=== PATIENT | female | born 1995 | race Caucasian/White ===

== ENCOUNTER 2020-09-20 08:39 | Emergency (ER) | payer OTHER ==
[2020-09-20 08:54] VITALS: BP 125/61
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
== END 2020-09-20 10:11 | disposition home or self-care (01) ==
LOC: ED 08:39
DX: S90.32XA Contusion of left foot, initial encounter (principal); V49.9XXA Car occupant (driver) (passenger) injured in unspecified traffic accident, initial encounter; Y92.410 Unspecified street and highway as the place of occurrence of the external cause; R20.0 Anesthesia of skin
CPT/HCPCS: 99281; 99282

== ENCOUNTER 2020-11-26 07:44 | Emergency (ER) | payer OTHER ==
[2020-11-26 07:52] VITALS: BP 120/41
[2020-11-26 08:12] LABS: RAPID STREP SCREEN Negative (Negative)
[2020-11-26 08:13] LABS: INFECTIOUS MONONUCLEOSIS NEGATIVE (Negative)
[2020-11-26] MEDS ORDERED: GI COCKTAIL 120 ML BOTTLE PO STA (08:15)
--- NOTE | 2020-11-26 08:19 | ED Physician Documentation ---
PD HPI HEENT - Stated complaint Stated Complaint: SWOLLEN TONSILS - Chief complaint Chief Complaint: Heent - History obtained from History obtained from: Patient - Additional information Additional information: Patient comes emergency department chief complaint of bilateral tonsillar pain and a sense of swelling that started a couple of days ago, worsening. She states she has a longstanding history of intermittent tonsillar discomfort and a sense of swelling. She states that she has a history of getting rhinorrhea when the weather turns rainy, but otherwise has no known allergies. The patient denies any known history of GERD, and no GERD symptoms.She does not recall getting anything stuck in her throat recently. Patient denies fever or chills. No rhinorrhea currently. She states she has has a little mucus in her throat when she wakes up in the morning and has to cough this out but otherwise, she has not had a "cough". No sick contacts. No other complaints at this time. Patient is vaccinated against Covid. Review of Systems Ten Systems: 10 systems reviewed and negative Constitutional: reports: Reviewed and negative Eyes: reports: Reviewed and negative Ears: reports: Reviewed and negative Nose: reports: Reviewed and negative Throat: reports: Sore throat Cardiac: reports: Reviewed and negative Respiratory: reports: Reviewed and negative GI: reports: Reviewed and negative : reports: Reviewed and negative Skin: reports: Reviewed and negative Musculoskeletal: reports: Reviewed and negative Neurologic: reports: Reviewed and negative Psychiatric: reports: Reviewed and negative Endocrine: reports: Reviewed and negative Immunocompromised: reports: Reviewed and negative PD PAST MEDICAL HISTORY - Past Medical History Past Medical History: Yes Cardiovascular: None Respiratory: None Neuro: Headaches Endocrine/Autoimmune: None GI: None 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 HEENT: None Psych: Depression, Anxiety Musculoskeletal: None Derm: None - Past Surgical History Past Surgical History: No - Present Medications Home Medications: Ambulatory Orders Medication Instructions Recorded Confirmed No Known Home Medications 11/26/20 11/26/20 - Allergies Allergies/Adverse Reactions: Allergies Allergy/AdvReac Type Severity Reaction Status Date / Time No Known Drug Allergies Allergy Verified 11/26/20 07:48 - Social History Does the pt smoke?: No Smoking Status: Former smoker Does the pt drink ETOH?: No Does the pt have substance abuse?: No - Immunizations Immunizations are current?: Yes PD ED PE NORMAL - Vitals Vital signs reviewed: Yes - General General: Alert and oriented X 3, No acute distress, Well developed/nourished - HEENT HEENT: Atraumatic, PERRL, EOMI, Moist mucous membranes, Pharynx benign (2+ tonsils without erythema or exudates. No asymmetry or enlargement. 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 I discussed with the patient that her symptoms, particularly being of a recurrent nature, may be the result of some underlying GERD, especially at night, or postnasal drip from allergies. She may also be trapping a small amount of food in the crypts of her tonsils because they are so prominent. I have advised her to follow-up with the ENT for further evaluation of this ongoing issue. The patient does not display any evidence of acute infection at this time, given her negative test. She has been given a GI cocktail here in the emergency department for symptomatic relief. We have discussed the usual indications for return. Departure - Departure Disposition: 01 Home, Self Care Clinical Impression: Pharyngitis Qualifiers: Pharyngitis/tonsillitis etiology: unspecified etiology Qualified Code(s): J02.9 - Acute pharyngitis, unspecified Condition: Stable Instructions: Sore Throats Self Care Follow-Up: Kel South MD [Physician No Access] - Comments: Both your mono and strep tests are negative. As we discussed, they are also noninfectious causes of sore throats, such as acid reflux or allergies. You may also be trapping a small amount of food in the crypts of your tonsils. It is also possible that you have a mild infection with one of the many upper respiratory viruses that are going around right now. We cannot test for all of these viruses, but if this is the case, the symptoms should go away on their own. Given the ongoing and recurrent nature of your throat symptoms, it would probably be good for you to follow-up with the ENT specialists. Please call today to make an appointment. Forms: Activity restrictions
[2020-11-26] MEDS ORDERED: LIDOCAINE VISCOUS 2% 15 ML UDC MM STA (08:20)
[2020-11-26] MEDS ORDERED: MAG HYDROX/AL HYDROX/SIMETH 30 ML UDC PO STA (08:20)
== END 2020-11-26 08:37 | disposition home or self-care (01) ==
LOC: ED 07:44
DX: J02.9 Acute pharyngitis, unspecified (principal); J35.1 Hypertrophy of tonsils; Z87.891 Personal history of nicotine dependence
CPT/HCPCS: 86308; 87070; 87077; 87430; 99283; 99284; A9270

== ENCOUNTER 2020-12-05 07:26 | Emergency (ER) | payer OTHER ==
[2020-12-05 07:37] VITALS: BP 109/50
--- NOTE | 2020-12-05 08:27 | ED Physician Documentation ---
PD HPI URI - Stated complaint Stated Complaint: SORE THROAT - Chief complaint Chief Complaint: Heent - History obtained from History obtained from: Patient - History of Present Illness Timing - onset: How many weeks ago (1) Timing duration: Weeks (1) Timing details: Abrupt onset, Still present Associated symptoms: Chills, Sore throat, Swollen nodes, NVD (nausea without vomiting; has had diarrhea for few days.). No: Fever, Nasal congestion, Dry cough Contributing factors: No: Sick contact, Travel, Unimmunized Improves by: No: Medication (seen recently with neg rapid strep but positive culture for group C strep; Rx with Amox the past 5 days without any improvement in symptoms. Her son is also now having sore throat too.) Similar symptoms before: Diagnosis (strep pharyngitis) Recently seen: Emergency Dept Review of Systems Constitutional: reports: Chills. denies: Fever Nose: denies: Rhinorrhea / runny nose, Congestion Throat: reports: Sore throat Respiratory: denies: Cough GI: reports: Nausea, Diarrhea. 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 HEENT: None Psych: Depression, Anxiety Musculoskeletal: None Derm: None - Past Surgical History Past Surgical History: No - Present Medications Home Medications: Ambulatory Orders Medication Instructions Recorded Confirmed Lactobacillus Combination No.4 1 each PO TID 7 Days #20 cap 12/05/20 [Probiotic] Ondansetron Odt [Zofran] 4 mg TL Q6H PRN #15 tablet 12/05/20 Penicillin Vk 500 mg PO DAILY 12/05/20 12/05/20 Venlafaxine HCl [Effexor Xr] 75 mg PO DAILY 12/05/20 12/05/20 cephALEXin [Keflex] 500 mg PO TID #20 cap 12/05/20 dexAMETHasone [Decadron] 4 mg PO DAILY #5 tablet 12/05/20 traZODone [Desyrel] 50 mg PO HS 12/05/20 12/05/20 - Allergies Allergies/Adverse Reactions: Allergies Allergy/AdvReac Type Severity Reaction Status Date / Time No Known Drug Allergies Allergy Verified 12/05/20 07:32 - Social History Does the pt smoke?: No Smoking Status: Never smoker Does the pt drink ETOH?: No Does the pt have substance abuse?: No - Immunizations Immunizations are current?: Yes PD ED PE NORMAL - Vitals Vital signs reviewed: Yes - General General: Alert and oriented X 3, No acute distress, Well developed/nourished - HEENT HEENT: Ears normal. No: Pharynx benign (redness with swelling of tonsils, left more than right. No peritonsillar edema. ) - Neck Neck: Supple, no meningeal sign, Other (left anterior adenopathy.) - Cardiac Cardiac: RRR, No murmur - Respiratory Respiratory: Clear bilaterally - Abdomen Abdomen: Soft, Non tender - Derm Derm: Normal color, Warm and dry, No rash - Neuro Neuro: Alert and oriented X 3, No motor deficit, Normal speech Results - Vitals Vitals: Vital Signs - 24 hr 12/05/20 07:34 Temperature 36.4 C L Heart Rate 76 Respiratory 18 Rate Blood Pressure 109/50 L O2 Saturation 97 Oxygen O2 Source Room air PD MEDICAL DECISION MAKING - ED course Complexity details: reviewed old records, considered differential (recent Dx group C strep without any improvement on Amox. Will change to Keflex, add steroids. GI symptoms likely side effect of abx; can add antiemetic and probiotics. ), d/w patient Departure - Departure Disposition: 01 Home, Self Care Clinical Impression: Strep pharyngitis Condition: Stable Record reviewed to determine appropriate education?: Yes Instructions: ED Strep Pharyngitis Conf Prescriptions: dexAMETHasone [Decadron] 4 mg PO DAILY #5 tablet cephALEXin [Keflex] 500 mg PO TID #20 cap Lactobacillus Combination No.4 [Probiotic] 1 each PO TID 7 Days #20 cap Ondansetron Odt [Zofran] 4 mg TL Q6H PRN #15 tablet PRN Reason: Nausea / Vomiting Comments: You have not had any improvement in your symptoms with the penicillin, I would suggest stopping the penicillin and switching to cephalexin. This should be active on the group C strep as well. Treatment failures with penicillin are about 5% so not too unusual. Stay well-hydrated. Ondansetron if needed for nausea. Add Decadron steroid for inflammation of the tonsils as directed. This should help with the discomfort as a fair amount. Continue Tylenol if needed for pains. The diarrhea and upset stomach likely are from side effect of the antibiotics. Add in some probiotic a few times daily to help with that and mitigate the side effects of the antibiotics. Some diarrhea could happen with the new antibiotic as well. Recheck if not improved over the next several days. You should be okay to return to work tomorrow if feeling improved. I transmitted your prescriptions to [facility] pharmacy. Discharge Date/Time: 12/05/20 09:21
[2020-12-05] MEDS ORDERED: ONDANSETRON ODT 4 MG TABLET TL STA (08:41)
[2020-12-05] MEDS ORDERED: DEXAMETHASONE 10 MG/ML VIAL PO STA (08:41)
[2020-12-05] MEDS ORDERED: diphenhydrAMINE ELIXIR 25 MG/10 ML UDC PO STA (08:41)
[2020-12-05] MEDS ORDERED: cephALEXin 250 MG CAPSULE PO STA (08:41)
[2020-12-05] MEDS ORDERED: CHERRY SYRUP 10 ML UDC PO ONE (08:41)
== END 2020-12-05 09:21 | disposition home or self-care (01) ==
LOC: ED 07:26
DX: J02.0 Streptococcal pharyngitis (principal); R59.0 Localized enlarged lymph nodes; R11.0 Nausea; R19.7 Diarrhea, unspecified
CPT/HCPCS: 99283; A9270; Q0162

== ENCOUNTER 2021-01-08 07:52 | Emergency (ER) | payer OTHER ==
--- NOTE | 2021-01-08 08:08 | ED Physician Documentation ---
PD HPI HEENT - Stated complaint Stated Complaint: JAW PX - Chief complaint Chief Complaint: Heent - History obtained from History obtained from: Patient - History of Present Illness Timing - onset: How many weeks ago (2) Timing - duration: Weeks (2) Timing - details: Abrupt onset, Still present Location: Tooth (right lower) Worsens: Swalllowing Associated symptoms: Swollen nodes (mild adenopathy anterior neck). No: Fever Similar symptoms before: Has not had sx before Recently seen: Clinic (Hd right lower 3rd molar extraction by oral surgeon 2 weeks ago with continued pain in area. Had re-procedure to "scrape the bone" per patient, twice, and placed on Amox and NSAIDs. Patient states still having swelling, pain and some drainage (bad tasting) from area. Pain worse since yesterday.) Review of Systems Constitutional: denies: Fever, Chills Nose: denies: Rhinorrhea / runny nose, Congestion Throat: reports: Dental pain / toothache. 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 HEENT: None Psych: Depression, Anxiety Musculoskeletal: None Derm: None - Past Surgical History Past Surgical History: No - Present Medications Home Medications: Ambulatory Orders Medication Instructions Recorded Confirmed Lactobacillus Combination No.4 1 each PO TID 7 Days #20 cap 12/05/20 [Probiotic] Ondansetron Odt [Zofran] 4 mg TL Q6H PRN #15 tablet 12/05/20 Penicillin Vk 500 mg PO DAILY 12/05/20 12/05/20 Venlafaxine HCl [Effexor Xr] 75 mg PO DAILY 12/05/20 12/05/20 cephALEXin [Keflex] 500 mg PO TID #20 cap 12/05/20 dexAMETHasone [Decadron] 4 mg PO DAILY #5 tablet 12/05/20 traZODone [Desyrel] 50 mg PO HS 12/05/20 12/05/20 Clindamycin [Cleocin] 300 mg PO TID 5 Days #15 cap 01/08/21 HYDROcod/ACETAM 5/325 [[place] 5/325] 1 ea PO Q6H PRN #18 tablet 01/08/21 dexAMETHasone [Decadron] 4 mg PO DAILY #5 tablet 01/08/21 - Allergies Allergies/Adverse Reactions: Allergies Allergy/AdvReac Type Severity Reaction Status Date / Time No Known Drug Allergies Allergy Verified 01/08/21 08:05 - Social History Does the pt smoke?: No Smoking Status: Never smoker Does the pt drink ETOH?: No Does the pt have substance abuse?: No - Immunizations Immunizations are current?: Yes PD ED PE NORMAL - Vitals Vital signs reviewed: Yes - General General: Alert and oriented X 3, No acute distress, Well developed/nourished - HEENT HEENT: Moist mucous membranes, Pharynx benign, Other (right lower 3rd molar area with tooth extracted and gum appearing mostly closed and pink at the area. Mild gum swelling without fluctuance on buccal side. Normal on lingual. TMJ area not tender per se. ) - Neck Neck: Supple, no meningeal sign, Other (mild right anterior adenopathy.) - Cardiac Cardiac: RRR, No murmur - Respiratory Respiratory: Clear bilaterally - Derm Derm: Normal color, Warm and dry - Neuro Neuro: Alert and oriented X 3, No motor deficit, Normal speech Results - Vitals Vitals: Vital Signs - 24 hr 01/08/21 01/08/21 08:01 08:56 Temperature 36.5 C 37.3 C Heart Rate 80 58 L Respiratory 15 16 Rate Blood Pressure 136/74 H 105/47 L O2 Saturation 99 96 Oxygen O2 Source Room air PD MEDICAL DECISION MAKING - ED course Complexity details: considered differential (has persistent swelling and drainage from extraction site. On AMox for a week. Can change abx and add short term pain meds. ), d/w patient ED course: I am prescribing a short course of short acting opioid pain medicine for this patient. I reviewed the patient's MANUFACTURER'S REPRESENTATIVE and no concerning findings were noted. I have discussed that the opioids are for short-term therapy only, and will not be refilled from the ED. Departure - Departure Disposition: 01 Home, Self Care Clinical Impression: Mandible pain, Other dental procedure status Condition: Stable Record reviewed to determine appropriate education?: Yes Follow-Up: ALEXANDRA HOLLINGSWORTH MD [Primary Care Provider] - Prescriptions: Clindamycin [Cleocin] 300 mg PO TID 5 Days #15 cap dexAMETHasone [Decadron] 4 mg PO DAILY #5 tablet HYDROcod/ACETAM 5/325 [[place] 5/325] 1 ea PO Q6H PRN #18 tablet PRN Reason: Pain Comments: Stop the amoxicillin and changed to clindamycin for concern of persistent infection. Continue Tylenol and ibuprofen for pains. Add Decadron steroid anti-inflammatory daily for a few days to see if that helps with any nerve inflammation. Add hydrocodone every 4-6 hours if needed for worse pain. Follow-up with oral surgeon over the next few days. I transmitted your prescription to [facility] pharmacy in [place]. I am prescribing a short course of narcotic pain medication for you. These are potentially dangerous and addictive medications that should be used carefully. These medications may constipate you. Take an [id number] stool softener such as docusate twice daily with plenty of water while taking these medications. If you go 24 hours without a bowel movement, take [id number] MiraLAX, per package instructions. Do not drink or drive while taking these medications. If you received narcotic or sedating medications while in the emergency depa rtment do not drive for 24 hours. Store this medication in a safe, secure place and out of reach of children. It is a violation of federal law to give or sell this medication to another person or to use in a manner other than prescribed. The ED will not refill narcotic prescriptions, including prescriptions lost or stolen. You can dispose of unwanted medications at the [facility]'s office or at several pharmacies such as [facility]. Forms: Activity restrictions Discharge Date/Time: 01/08/21 09:02
[2021-01-08] MEDS ORDERED: DEXAMETHASONE 10 MG/ML VIAL PO STA (08:23)
[2021-01-08] MEDS ORDERED: ACETAMINOPHEN 325 MG TABLET PO STA (08:23)
[2021-01-08] MEDS ORDERED: CHERRY SYRUP 10 ML UDC PO ONE (08:23)
[2021-01-08] MEDS ORDERED: CLINDAMYCIN 150 MG CAPSULE PO STA (08:23)
[2021-01-08 08:57] VITALS: BP 105/47
== END 2021-01-08 09:02 | disposition home or self-care (01) ==
LOC: ED 07:52
DX: R68.84 Jaw pain (principal); Z98.818 Other dental procedure status
CPT/HCPCS: 99283; A9270

== ENCOUNTER 2021-03-12 13:29 | Emergency (ER) | payer OTHER ==
[2021-03-12] MEDS ORDERED: SODIUM CHLORIDE 0.9% 1,000 ML IV STA (13:54)
[2021-03-12] MEDS ORDERED: ONDANSETRON 4 MG/2 ML VIAL IVP STA (13:54)
--- NOTE | 2021-03-12 13:56 | ED Physician Documentation ---
PD HPI ABD PAIN - Stated complaint Stated Complaint: STOMACH PX/VOMITTING/BACK PX/HEADACHE - Chief complaint Chief Complaint: Abd Pain - History obtained from History obtained from: Patient - Additional information Additional information: 25-year-old woman who is about 2 weeks after her last menses presents with 4 days of lower abdominal pain, nausea, vomiting, and headache. She was checked for COVID and it was negative. She has had chills and myalgias. No history of abdominal surgeries. She does have some right low back pain with this as well. Review of Systems Constitutional: reports: Chills, Myalgias. 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 PHARMACEUTICAL: Miscarriage(s) : None HEENT: None Psych: Depression, Anxiety Musculoskeletal: None Derm: None - Past Surgical History Past Surgical History: No - Present Medications Home Medications: Ambulatory Orders Medication Instructions Recorded Confirmed Lactobacillus Combination No.4 1 each PO TID 7 Days #20 cap 12/05/20 [Probiotic] Ondansetron Odt [Zofran] 4 mg TL Q6H PRN #15 tablet 12/05/20 Penicillin Vk 500 mg PO DAILY 12/05/20 12/05/20 Venlafaxine HCl [Effexor Xr] 75 mg PO DAILY 12/05/20 12/05/20 cephALEXin [Keflex] 500 mg PO TID #20 cap 12/05/20 dexAMETHasone [Decadron] 4 mg PO DAILY #5 tablet 12/05/20 traZODone [Desyrel] 50 mg PO HS 12/05/20 12/05/20 Clindamycin [Cleocin] 300 mg PO TID 5 Days #15 cap 01/08/21 HYDROcod/ACETAM 5/325 [Ventura 5/325] 1 ea PO Q6H PRN #18 tablet 01/08/21 dexAMETHasone [Decadron] 4 mg PO DAILY #5 tablet 01/08/21 HYDROcod/ACETAM 5/325 [Ventura 5/325] 1 - 2 tab PO Q6H PRN #10 tablet 03/12/21 Meloxicam [Mobic] 7.5 mg PO BID PRN #10 tablet 03/12/21 Ondansetron Odt [Zofran] 4 mg TL Q6H PRN #10 tablet 03/12/21 - Allergies Allergies/Adverse Reactions: Allergies Allergy/AdvReac Type Severity Reaction Status Date / Time No Known Drug Allergies Allergy Verified 03/12/21 13:42 - Social History Does the pt smoke?: No Smoking Status: Never smoker Does the pt drink ETOH?: No Does the pt have substance abuse?: No - Immunizations Immunizations are current?: Yes PD ED PE NORMAL - Vitals Vital signs reviewed: Yes - General General: Alert and oriented X 3, No acute distress - HEENT HEENT: PERRL, EOMI - Neck Neck: Supple, no meningeal sign, No bony TTP - Abdomen Abdomen: Normal bowel sounds, Soft, Other (Very mild right lower abdominal tenderness without surgical signs, very mild right flank tenderness.) - Derm Derm: Normal color, Warm and dry - Neuro Neuro: Alert and oriented X 3, Normal speech Results - Vitals Vitals: Vital Signs - 24 hr 03/12/21 13:37 Temperature 36.3 C L Heart Rate 98 Respiratory 16 Rate Blood Pressure 115/49 L O2 Saturation 99 Oxygen O2 Source Room air - Labs Labs: Laboratory Tests 03/12/21 03/12/21 03/12/21 13:45 13:45 13:50 WBC 7.2 RBC 4.59 Hgb 13.9 Hct 41.4 MCV 90.2 MCH 30.3 MCHC 33.6 RDW 11.3 L Plt Count 225 MPV 10.7 Neut # (Auto) 4.7 Lymph # (Auto) 2.1 [place] # (Auto) 0.3 Eos # (Auto) 0.0 Baso # (Auto) 0.1 Absolute Nucleated RBC 0.00 Nucleated RBC % 0.0 Sodium Potassium Chloride Carbon Dioxide Anion Gap BUN Creatinine Estimated GFR (MDRD) Glucose Calcium Total Bilirubin AST ALT Alkaline Phosphatase Total Protein Albumin Globulin Albumin/Globulin Ratio Lipase Urine Color YELLOW Urine Clarity CLEAR Urine pH 8.0 H Ur Specific [place] 1.020 Urine Protein NEGATIVE Urine Glucose (UA) NEGATIVE Urine Ketones NEGATIVE Urine Occult Blood TRACE-INTA Urine Nitrite NEGATIVE Urine Bilirubin NEGATIVE Urine Urobilinogen 0.2 (NORMAL) Ur Leukocyte Esterase NEGATIVE Ur Microscopic Review NOT INDICATED Urine Culture Comments NOT INDICATED Urine HCG, Qual NEGATIVE 03/12/21 13:50 WBC RBC Hgb Hct MCV MCH MCHC RDW Plt Count MPV Neut # (Auto) Lymph # (Auto) [place] # (Auto) Eos # (Auto) Baso # (Auto) Absolute Nucleated RBC Nucleated RBC % Sodium 139 Potassium 3.7 Chloride 102 Carbon Dioxide 26 Anion Gap 11.0 BUN 10 Creatinine 0.7 Estimated GFR (MDRD) 101 Glucose 95 Calcium 9.5 Total Bilirubin 0.8 AST 14 ALT 12 Alkaline Phosphatase 37 L Total Protein 7.5 Albumin 4.5 Globulin 3.0 Albumin/Globulin Ratio 1.5 Lipase 26 Urine Color Urine Clarity Urine pH Ur Specific [place] Urine Protein Urine Glucose (UA) Urine Ketones Urine Occult Blood Urine Nitrite Urine Bilirubin Urine Urobilinogen Ur Leukocyte Esterase Ur Microscopic Review Urine Culture Comments Urine HCG, Qual PD MEDICAL DECISION MAKING - ED course ED course: 25-year-old woman with what sound like a viral syndrome with headaches, body aches, vomiting, abdominal pain. On examination after ketorolac and Zofran her nausea was much better, her pain did not improve much but she was nontender on reevaluation. Given the normal blood work, seemed more likely to be pelvic pathology then peritoneal and an ultrasound was done and negative. Given the overall findings my suspicion for appendicitis is low and we discussed that we could do a CAT scan today but she declined and preferred watchful waiting which given the low pretest probability is not unreasonable understanding that she would need to return in short timeframe, 12 to 24 hours if not better. Departure - Departure Disposition: 01 Home, Self Care Clinical Impression: Abdominal pain, Vomiting Condition: Good Record reviewed to determine appropriate education?: Yes Instructions: ED Abdominal Pain Female Non-Specific Abdominal Pain Prescriptions: Meloxicam [Mobic] 7.5 mg PO BID PRN #10 tablet PRN Reason: Pain HYDROcod/ACETAM 5/325 [Ventura 5/325] 1 - 2 tab PO Q6H PRN #10 tablet PRN Reason: Pain Ondansetron Odt [Zofran] 4 mg TL Q6H PRN #10 tablet PRN Reason: Nausea / Vomiting Comments: I sent your prescriptions electronically to [email or web address] in [place]. Return if worse or if not better over the next day or so. Follow-up with your doctor otherwise on as scheduled. Your blood work is normal and her ultrasound is negative for ovarian cyst or pelvic pathology. I am prescribing a short course of narcotic pain medication for you. These are potentially dangerous and addictive medications that should be used carefully. These medications may constipate you. Take an xcpi-acc-vgbkrlp stool softener (docusate) twice daily with plenty of water while taking these medications. If you go 24 hours without a bowel movement, take [id number] miralax, per package instructions. Do not drink or drive while taking these medications. If you received narcotic or sedating medications while in the emergency department, do not drive for 24 hours. Store this medication in a safe, secure place and out of reach of children. It is a violation of federal law to give or sell this medication to another person or to use in a manner other than prescribed. The ED will not refill narcotic prescriptions, including prescriptions lost or stolen. To dispose of unwanted medications: 1. [facility] at [address] in [place] has a medication drop box. They accept prescription medications (in pill form) Thursday through Thursday 9:00 a.m. to 5:00 p.m. 2. The [facility] [employer] [facility] accepts prescription medications (in pill form only) for disposal year round. Call for more information. 3. Contact the [facility] for the next [facility] sponsored prescription drug collection event. , [phone], or [phone]; Note that many narcotic pain relievers also contain Tylenol/acetaminophen. Please ensure that your total dose of acetaminophen from all sources does not exceed 3 g (3000 mg) per day. Forms: Activity restrictions
[2021-03-12 13:59] LABS: BASOPHILS # (AUTO) 0.1 10^3/uL (0.0-0.1); BASOPHILS % (AUTO) 0.7 %; EOSINOPHILS % (AUTO) 0.6 %; HCT - HEMATOCRIT 41.4 % (37.0-47.0); HGB - HEMOGLOBIN 13.9 g/dL (12.0-16.0); LYMPHOCYTES # (AUTO) 2.1 10^3/uL (1.5-3.5); LYMPHOCYTES % (AUTO) 29.6 %; MEAN CORPUSCULAR HEMOGLOBIN 30.3 pg (27.0-31.0); MEAN CORPUSCULAR HGB CONC 33.6 g/dL (32.0-36.0); MEAN CORPUSCULAR VOLUME 90.2 fL (81.0-99.0); MEAN PLATELET VOLUME 10.7 fL (7.9-10.8); MONOCYTES # (AUTO) 0.3 10^3/uL (0.0-1.0); MONOCYTES % (AUTO) 3.9 %; NEUTROPHILS # (AUTO) 4.7 10^3/uL (1.5-6.6); NEUTROPHILS % (AUTO) 65.1 %; PLT - PLATELET COUNT 225 10^3/uL (130-450); RED BLOOD COUNT 4.59 10^6/uL (4.20-5.40); RED CELL DISTRIBUTION WIDTH 11.3 % (12.0-15.0); WHITE BLOOD COUNT 7.2 x10^3/uL (4.8-10.8)
[2021-03-12 14:00] LABS: BILIRUBIN,URINE NEGATIVE (NEGATIVE); GLUCOSE, URINE (UA) NEGATIVE (NEGATIVE); KETONES,URINE (UA) NEGATIVE (NEGATIVE); LEUKOCYTE ESTERASE, URINE NEGATIVE (NEGATIVE); NITRITE,URINE NEGATIVE (NEGATIVE); OCCULT BLOOD,URINE TRACE-INTA (NEGATIVE); PROTEIN,URINE NEGATIVE (NEGATIVE); UROBILINOGEN,URINE 0.2 (NORMAL) E.U./dL (NORMAL)
[2021-03-12 14:04] LABS: CLARITY,URINE CLEAR (CLEAR); HCG UR QUAL NEGATIVE
[2021-03-12 14:14] LABS: ALBUMIN 4.5 g/dL (3.2-5.5); ALBUMIN/GLOBULIN RATIO 1.5 (1.0-2.2); BILIRUBIN,TOTAL 0.8 mg/dL (0.2-1.0); CALCIUM 9.5 mg/dL (8.5-10.3); CREATININE 0.7 mg/dL (0.4-1.0); POTASSIUM 3.7 mmol/L (3.5-5.0); TOTAL PROTEIN 7.5 g/dL (6.7-8.2)
[2021-03-12] MEDS ORDERED: KETOROLAC 15 MG/ML VIAL IVP STA (14:25)
--- NOTE | 2021-03-12 15:55 | Ultrasound Report ---
PROCEDURE: Pelvic w/Transvag+Doppler Comp INDICATIONS: Pelvic pain TECHNIQUE: Real-time scanning was performed of the pelvic organs, with image documentation. Additional endovagi nal scanning was necessary due to incomplete visualization of the adnexal and endometrial structures by transabdominal scanning. COMPARISON: None. FINDINGS: No pathologic free abdominal or pelvic fluid. Uterus: Uterus is anteverted normal in size at 7.5 x 4.4 x 3.5 cm. Homogeneous uterine echotexture. The endometrium measures 4 mm in combined thickness. Ovaries: Within normal limits. Blood flow seen in both ovaries. Right ovary measures 3.8 x 3.1 x 2.7 cm, volume of 17 cc. Left ovary measures 3.6 x 2.9 x 2.5 cm, volume of 14 cc. IMPRESSION: No source for pelvic pain is identified. Normal sonographic appearance of the uterus and ovaries. Reviewed by: Carlos Espino MD on 03/12/2021 3:54 PM PST Approved by: Carlos Espino MD on 03/12/2021 3:54 PM PST Station ID: [id number]
[2021-03-12 16:07] VITALS: BP 119/40
== END 2021-03-12 16:11 | disposition home or self-care (01) ==
LOC: ED 13:29
DX: R10.30 Lower abdominal pain, unspecified (principal); R11.2 Nausea with vomiting, unspecified
CPT/HCPCS: 36415; 80053; 81001; 81003; 81025; 83690; 85025; 87086; 93975; 96361; 96374; 96375; 99283

== ENCOUNTER 2021-03-18 11:06 | Emergency (ER) | payer OTHER ==
--- NOTE | 2021-03-18 11:23 | ED Physician Documentation ---
PD HPI ABD PAIN - Stated complaint Stated Complaint: ABD PAIN - Chief complaint Chief Complaint: Abd Pain - History obtained from History obtained from: Patient - History of Present Illness Timing - onset: How many weeks ago (1) Timing - duration: Weeks (1) Timing - details: Gradual onset, Still present, Waxing and waning Quality: Aching, Pain Location: RUQ, Epigastric, Periumbilical Radiation: Lower back. No: Chest Improved by: No: Eating Worsened by: Eating, Palpation. No: Moving, Breathing Associated symptoms: Nausea, Loss of appetite. No: Fever, Vomiting, Diarrhea, Constipation, Near syncope / syncope Review of Systems Constitutional: denies: Fever, Chills Nose: denies: Rhinorrhea / runny nose, Congestion Throat: denies: Sore throat Cardiac: denies: Chest pain / pressure, Palpitations, Pedal edema, Calf pain Respiratory: denies: Cough GI: reports: Abdominal Pain, Nausea, Vomiting (few times). denies: Hematemesis : denies: Dysuria, Frequency Skin: denies: Rash PD PAST MEDICAL HISTORY - Past Medical History Past Medical History: Yes Cardiovascular: None Respiratory: None Neuro: Headaches Endocrine/Autoimmune: None GI: None DETECTIVE NARCOTICS AND VICE: Miscarriage(s) : None HEENT: None Psych: Depression, Anxiety Musculoskeletal: None Derm: None - Past Surgical History Past Surgical History: No - Present Medications Home Medications: Ambulatory Orders Medication Instructions Recorded Confirmed Venlafaxine HCl [Effexor Xr] 75 mg PO DAILY 12/05/20 03/18/21 Ondansetron Odt [Zofran] 4 mg TL Q6H PRN #10 tablet 03/12/21 03/18/21 Acetaminophen [Acetaminophen Extra 500 mg PO QID PRN #50 tablet 03/18/21 Strength] Docusate Sodium 100Mg Capsule 100 mg PO DAILY #20 cap 03/18/21 [Colace 100Mg Capsule] Famotidine [Pepcid] 20 mg PO DAILY #20 tablet 03/18/21 Lidocaine Viscous 2% [Xylocaine 5 ml PO Q4H PRN #100 ml 03/18/21 Viscous 2%] Ondansetron Odt [Zofran] 4 mg TL Q6H PRN #10 tablet 03/18/21 oxyCODONE [Roxicodone] 5 mg PO Q6H PRN #15 tablet 03/18/21 - Allergies Allergies/Adverse Reactions: Allergies Allergy/AdvReac Type Severity Reaction Status Date / Time No Known Drug Allergies Allergy Verified 03/18/21 11:09 - Social History Does the pt smoke?: No Smoking Status: Former smoker Does the pt drink ETOH?: No Does the pt have substance abuse?: No - Immunizations Immunizations are current?: Yes PD ED PE NORMAL - Vitals Vital signs reviewed: Yes - General General: Alert and oriented X 3, Well developed/nourished - HEENT HEENT: Moist mucous membranes, Pharynx benign - Neck Neck: Supple, no meningeal sign, No adenopathy - Cardiac Cardiac: RRR, No murmur - Respiratory Respiratory: No respiratory distress, Clear bilaterally - Abdomen Abdomen: Normal bowel sounds, Soft, Non distended, Other (tender epigastric and RUQ areas without percussion nor rebound. MIld local guarding. ) - Back Back: No CVA TTP - Derm Derm: Normal color, Warm and dry - Extremities Extremities: No tenderness to palpate, No edema, No calf tenderness / cord - Neuro Neuro: Alert and oriented X 3, No motor deficit, Normal speech Results - Vitals Vitals: Oxygen O2 Source Room air - Labs Labs: Microbiology 03/18/21 12:00 Group A Strep Throat Culture - Preliminary Throat CULTURE IN PROGRESS. RESULTS TO FOLLOW. 03/18/21 12:25 Urine Culture - Final Urine,Clean Catch No growth Laboratory Tests 03/18/21 03/18/21 03/18/21 11:30 11:30 12:00 WBC 6.7 RBC 4.41 Hgb 13.4 Hct 39.3 MCV 89.1 MCH 30.4 MCHC 34.1 RDW 11.5 L Plt Count 232 MPV 11.1 H Neut # (Auto) 3.9 Lymph # (Auto) 2.3 [place] # (Auto) 0.4 Eos # (Auto) 0.1 Baso # (Auto) 0.1 Absolute Nucleated RBC 0.00 Nucleated RBC % 0.0 Sodium 134 L Potassium 3.7 Chloride 101 Carbon Dioxide 26 Anion Gap 7.0 BUN 12 Creatinine 0.7 Estimated GFR (MDRD) 101 Glucose 84 Calcium 8.9 Total Bilirubin 0.8 AST 15 ALT 12 Alkaline Phosphatase 34 L Total Protein 7.4 Albumin 4.3 Globulin 3.1 Albumin/Globulin Ratio 1.4 Lipase 29 Urine Color Urine Clarity Urine pH Ur Specific [place] Urine Protein Urine Glucose (UA) Urine Ketones Urine Occult Blood Urine Nitrite Urine Bilirubin Urine Urobilinogen Ur Leukocyte Esterase Urine RBC Urine WBC Ur Squamous Epith Cells Urine Bacteria Ur Microscopic Review Urine Culture Comments Urine HCG, Qual Group A Strep Rapid Negative 03/18/21 12:25 WBC RBC Hgb Hct MCV MCH MCHC RDW Plt Count MPV Neut # (Auto) Lymph # (Auto) [place] # (Auto) Eos # (Auto) Baso # (Auto) Absolute Nucleated RBC Nucleated RBC % Sodium Potassium Chloride Carbon Dioxide Anion Gap BUN Creatinine Estimated GFR (MDRD) Glucose Calcium Total Bilirubin AST ALT Alkaline Phosphatase Total Protein Albumin Globulin Albumin/Globulin Ratio Lipase Urine Color LT. YELLOW Urine Clarity CLEAR Urine pH 7.5 Ur Specific [place] 1.010 Urine Protein NEGATIVE Urine Glucose (UA) NEGATIVE Urine Ketones NEGATIVE Urine Occult Blood NEGATIVE Urine Nitrite NEGATIVE Urine Bilirubin NEGATIVE Urine Urobilinogen 0.2 (NORMAL) Ur Leukocyte Esterase TRACE H Urine RBC None Seen Urine WBC 0-3 Ur Squamous Epith Cells RARE Squamous Urine Bacteria None Seen Ur Microscopic Review INDICATED Urine Culture Comments INDICATED Urine HCG, Qual NEGATIVE Group A Strep Rapid - Rads (name of study) abd/pelvic CT Radiology: Prelim report reviewed (no acute abnormalities. ), See rad report PD MEDICAL DECISION MAKING - ED course Complexity details: reviewed old records ([facility] Shows only 2 prior prescriptions from the ER in the last 3 months for this pain. Seems reasonable to prescribe more if needed.), re-evaluated patient (improved moderately with GI cocktail. ), considered differential (seems likely gastritis but also some pain RUQ. Can get imaging to better evaluate other causes. ), d/w patient Departure - Departure Disposition: 01 Home, Self Care Clinical Impression: Acute upper abdominal pain Gastritis Qualifiers: Gastritis type: unspecified gastritis Chronicity: acute Gastritis bleeding: with bleeding Qualified Code(s): K29.01 - Acute gastritis with bleeding Instructions: ED PUD Vs Gastritis Follow-Up: ALEXANDRA HOLLINGSWORTH MD [Primary Care Provider] - Prescriptions: Acetaminophen [Acetaminophen Extra Strength] 500 mg PO QID PRN #50 tablet PRN Reason: Pain Docusate Sodium 100Mg Capsule [Colace 100Mg Capsule] 100 mg PO DAILY #20 cap Famotidine [Pepcid] 20 mg PO DAILY #20 tablet oxyCODONE [Roxicodone] 5 mg PO Q6H PRN #15 tablet PRN Reason: Pain Lidocaine Viscous 2% [Xylocaine Viscous 2%] 5 ml PO Q4H PRN #100 ml PRN Reason: Pain Ondansetron Odt [Zofran] 4 mg TL Q6H PRN #10 tablet PRN Reason: Nausea / Vomiting Comments: Your blood tests and urine tests and CT scan appear normal. This excludes some things like pancreatic problem or gallbladder or colitis. However your symptoms sound likely to be gastritis which is an irritation of the stomach and typically this will not show on imaging or blood tests. As such we will treat this as likely gastritis with famotidine acid reducing medicine twice daily for the first 5 days and then once daily after that for a few weeks. Add ondansetron if needed for nausea every 4-6 hours. For pain, use Tylenol 4 times a day. To that add oxycodone if needed for worse pain periodically. Do not use any NSAIDs such as ibuprofen or naproxen as that can further irritate your stomach. Use docusate stool softener twice daily for the next few days and then once daily after that for constipation. Follow-up with your primary care later this week, call for an appointment. Off work today in the next few days while dealing with this problem. Antacid such as Maalox or Mylanta periodically for stomach pain and you can add lidocaine to that if needed. I transmitted your prescriptions to [facility]. I am prescribing a short course of narcotic pain medication for you. These are potentially dangerous and addictive medications that should be used carefully. These medications may constipate you. Take an ahln-pru-vcfmdod stool softener such as docusate twice daily with plenty of water while taking these medications. If you go 24 hours without a bowel movement, take [id number] MiraLAX, per package instructions. Do not drink or drive while taking these medications. If you received narcotic or sedating medications while in the emergency departme nt do not drive for 24 hours. Store this medication in a safe, secure place and out of reach of children. It is a violation of federal law to give or sell this medication to another person or to use in a manner other than prescribed. The ED will not refill narcotic prescriptions, including prescriptions lost or stolen. You can dispose of unwanted medications at the [facility]'s office or at several pharmacies such as [facility]. Forms: Activity restrictions Discharge Date/Time: 03/18/21 14:32
[2021-03-18 11:36] LABS: BASOPHILS # (AUTO) 0.1 10^3/uL (0.0-0.1); BASOPHILS % (AUTO) 0.8 %; EOSINOPHILS # (AUTO) 0.1 10^3/uL (0.0-0.7); EOSINOPHILS % (AUTO) 1.2 %; HCT - HEMATOCRIT 39.3 % (37.0-47.0); HGB - HEMOGLOBIN 13.4 g/dL (12.0-16.0); LYMPHOCYTES # (AUTO) 2.3 10^3/uL (1.5-3.5); LYMPHOCYTES % (AUTO) 34.4 %; MEAN CORPUSCULAR HEMOGLOBIN 30.4 pg (27.0-31.0); MEAN CORPUSCULAR HGB CONC 34.1 g/dL (32.0-36.0); MEAN CORPUSCULAR VOLUME 89.1 fL (81.0-99.0); MEAN PLATELET VOLUME 11.1 fL (7.9-10.8); MONOCYTES # (AUTO) 0.4 10^3/uL (0.0-1.0); MONOCYTES % (AUTO) 5.3 %; NEUTROPHILS # (AUTO) 3.9 10^3/uL (1.5-6.6); PLT - PLATELET COUNT 232 10^3/uL (130-450); RED BLOOD COUNT 4.41 10^6/uL (4.20-5.40); RED CELL DISTRIBUTION WIDTH 11.5 % (12.0-15.0); WHITE BLOOD COUNT 6.7 x10^3/uL (4.8-10.8)
[2021-03-18] MEDS ORDERED: SODIUM CHLORIDE 0.9% 1,000 ML IV STA ×2 (11:45)
[2021-03-18] MEDS ORDERED: KETOROLAC 15 MG/ML VIAL IVP STA (11:45)
[2021-03-18] MEDS ORDERED: FAMOTIDINE 20 MG/2 ML VIAL IVP STA (11:45)
[2021-03-18] MEDS ORDERED: ONDANSETRON 4 MG/2 ML VIAL IVP STA (11:45)
[2021-03-18 11:47] LABS: ALBUMIN 4.3 g/dL (3.2-5.5); ALBUMIN/GLOBULIN RATIO 1.4 (1.0-2.2); BILIRUBIN,TOTAL 0.8 mg/dL (0.2-1.0); CALCIUM 8.9 mg/dL (8.5-10.3); CREATININE 0.7 mg/dL (0.4-1.0); POTASSIUM 3.7 mmol/L (3.5-5.0); TOTAL PROTEIN 7.4 g/dL (6.7-8.2)
[2021-03-18 12:28] LABS: RAPID STREP SCREEN Negative (Negative)
[2021-03-18 12:33] LABS: BILIRUBIN,URINE NEGATIVE (NEGATIVE); GLUCOSE, URINE (UA) NEGATIVE (NEGATIVE); KETONES,URINE (UA) NEGATIVE (NEGATIVE); LEUKOCYTE ESTERASE, URINE TRACE (NEGATIVE); NITRITE,URINE NEGATIVE (NEGATIVE); OCCULT BLOOD,URINE NEGATIVE (NEGATIVE); PH,URINE 7.5 PH (5.0-7.5); PROTEIN,URINE NEGATIVE (NEGATIVE); UROBILINOGEN,URINE 0.2 (NORMAL) E.U./dL (NORMAL)
[2021-03-18] MEDS ORDERED: iohexoL-300 100 ML VIAL ONE (12:33)
[2021-03-18 12:41] LABS: CLARITY,URINE CLEAR (CLEAR); HCG UR QUAL NEGATIVE
[2021-03-18 12:52] LABS: BACTERIA,URINE None Seen /HPF (None Seen); RBC,URINE None Seen /HPF (0-5); SQUAMOUS EPITHELIAL CELL,UR RARE Squamous (<= Few); WBC,URINE 0-3 /HPF (0-5)
--- NOTE | 2021-03-18 13:39 | CT Report ---
PROCEDURE: Abdomen/Pelvis W INDICATIONS: upper mid to right abd pain for a week, with vomit CONTRAST: IV CONTRAST: Isovue 300 ml: 100 PO CONTRAST: *NO PO CONTRAST TECHNIQUE: After the administration of intravenous contrast, 5 mm thick sections acquired from the diaphragms to the symphysis. 5 mm thick coronal and sagittal reformats were acquired. For radiation dose reducti on, the following was used: automated exposure control, adjustment of mA and/or kV according to radha ent size. COMPARISON: None. FINDINGS: Image quality: Excellent. ABDOMEN: Lung bases: Lung bases are clear. Heart size is normal. Solid organs: Liver and spleen are normal in size and enhancement. Gallbladder is normal. Biliary system is non dilated. Pancreas enhances normally. No adrenal nodules. Kidneys demonstrate normal size and enhancement, without hydronephrosis. Peritoneum and bowel: Bowel loops demonstrate normal wall thickness and caliber. Moderate amount of stool in colon. Normal appendix. No free fluid or air. Nodes and vessels: No retroperitoneal or mesenteric adenopathy by size criteria. Aorta and inferior vena cava are normal in size. Miscellaneous: No ventral hernias. PELVIS: Genitourinary: Uterus and ovaries are normal. No free fluid in pelvis. Bladder wall thickness is nor mal. Miscellaneous: No inguinal hernias or adenopathy. Bones: No suspicious bony lesions. No vertebral body compression fractures. IMPRESSION: 1. No acute abnormalities in abdomen or pelvis. Reviewed by: Marshall Hickey MD on 03/18/2021 1:38 PM PST Approved by: Marshall Hickey MD on 03/18/2021 1:38 PM PST Station ID: [id number]
[2021-03-18] MEDS ORDERED: DROPERIDOL 5 MG/2 ML VIAL IVP STA (14:00)
[2021-03-18] MEDS ORDERED: ACETAMINOPHEN 325 MG TABLET PO STA (14:01)
[2021-03-18] MEDS ORDERED: MAG HYDROX/AL HYDROX/SIMETH 30 ML UDC PO STA (14:01)
[2021-03-18 14:12] VITALS: BP 109/75
[2021-03-18] MEDS ORDERED: iohexoL-300 100 ML VIAL IVP ONE (18:35)
== END 2021-03-18 14:32 | disposition home or self-care (01) ==
LOC: ED 11:06
DX: K29.01 Acute gastritis with bleeding (principal); Z87.891 Personal history of nicotine dependence
CPT/HCPCS: 36415; 74177; 80053; 81001; 81025; 83690; 85025; 87070; 87086; 87430; 96361; 96374; 96375; 99284; 99285; A9270; Q9967; 81003

== ENCOUNTER 2021-04-08 11:37 | Emergency (ER) | payer OTHER ==
[2021-04-08 12:05] LABS: BASOPHILS # (AUTO) 0.1 10^3/uL (0.0-0.1); BASOPHILS % (AUTO) 0.7 %; EOSINOPHILS # (AUTO) 0.1 10^3/uL (0.0-0.7); EOSINOPHILS % (AUTO) 1.5 %; HCT - HEMATOCRIT 39.6 % (37.0-47.0); HGB - HEMOGLOBIN 13.4 g/dL (12.0-16.0); LYMPHOCYTES # (AUTO) 2.9 10^3/uL (1.5-3.5); MEAN CORPUSCULAR HEMOGLOBIN 29.9 pg (27.0-31.0); MEAN CORPUSCULAR HGB CONC 33.8 g/dL (32.0-36.0); MEAN CORPUSCULAR VOLUME 88.4 fL (81.0-99.0); MEAN PLATELET VOLUME 11.3 fL (7.9-10.8); MONOCYTES # (AUTO) 0.3 10^3/uL (0.0-1.0); MONOCYTES % (AUTO) 4.6 %; NEUTROPHILS # (AUTO) 3.7 10^3/uL (1.5-6.6); NEUTROPHILS % (AUTO) 51.9 %; PLT - PLATELET COUNT 236 10^3/uL (130-450); RED BLOOD COUNT 4.48 10^6/uL (4.20-5.40); RED CELL DISTRIBUTION WIDTH 11.7 % (12.0-15.0); WHITE BLOOD COUNT 7.1 x10^3/uL (4.8-10.8)
[2021-04-08 12:08] LABS: BILIRUBIN,URINE NEGATIVE (NEGATIVE); GLUCOSE, URINE (UA) NEGATIVE (NEGATIVE); KETONES,URINE (UA) NEGATIVE (NEGATIVE); LEUKOCYTE ESTERASE, URINE TRACE (NEGATIVE); NITRITE,URINE NEGATIVE (NEGATIVE); OCCULT BLOOD,URINE TRACE-INTA (NEGATIVE); PH,URINE 6.5 PH (5.0-7.5); PROTEIN,URINE NEGATIVE (NEGATIVE); UROBILINOGEN,URINE 0.2 (NORMAL) E.U./dL (NORMAL)
[2021-04-08 12:09] LABS: CLARITY,URINE HAZY (CLEAR)
[2021-04-08 12:11] LABS: HCG UR QUAL NEGATIVE
[2021-04-08 12:13] LABS: MUDS CUTOFF CONCENTRATIONS CUTOFF CONC BELOW:
[2021-04-08] MEDS ORDERED: oxyCODONE 5 MG TABLET PO STA (12:16)
[2021-04-08] MEDS ORDERED: PANTOPRAZOLE 40 MG TABLET PO STA (12:16)
--- NOTE | 2021-04-08 12:17 | ED Physician Documentation ---
PD HPI ABD PAIN - Stated complaint Stated Complaint: NAUSEA, STOMACH PX, BLOOD IN VOMIT - Chief complaint Chief Complaint: Abd Pain - History obtained from History obtained from: Patient - Additional information Additional information: Previously healthy 25-year-old started having abdominal issues about a month and a half ago. Has almost daily upper abdominal pain and left-sided abdominal pain with constant nausea and occasional vomiting. She had blood-streaked vomitus this morning. She has had several ED visits for same with negative work-ups including labs, ultrasound, and CT. She has had a telephonic consultation with GI, and is being scheduled for EGD but date yet unknown. She has been constipated. She is on famotidine and MiraLAX for the above. She is also on ibuprofen which was discussed she should probably stop given potential for PUD/gastritis. 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(s) : None HEENT: None Psych: Depression, Anxiety Musculoskeletal: None Derm: None - Past Surgical History Past Surgical History: No - Present Medications Home Medications: Ambulatory Orders Medication Instructions Recorded Confirmed Venlafaxine HCl [Effexor Xr] 75 mg PO DAILY 12/05/20 03/18/21 Ondansetron Odt [Zofran] 4 mg TL Q6H PRN #10 tablet 03/12/21 03/18/21 Acetaminophen [Acetaminophen Extra 500 mg PO QID PRN #50 tablet 03/18/21 Strength] Docusate Sodium 100Mg Capsule 100 mg PO DAILY #20 cap 03/18/21 [Colace 100Mg Capsule] Famotidine [Pepcid] 20 mg PO DAILY #20 tablet 03/18/21 Lidocaine Viscous 2% [Xylocaine 5 ml PO Q4H PRN #100 ml 03/18/21 Viscous 2%] Ondansetron Odt [Zofran] 4 mg TL Q6H PRN #10 tablet 03/18/21 oxyCODONE [Roxicodone] 5 mg PO Q6H PRN #15 tablet 03/18/21 Omeprazole 40 mg PO DAILY #30 cap 04/08/21 Ondansetron Odt [Zofran] 4 mg TL Q6H PRN #14 tablet 04/08/21 Oxycodone HCl/Acetaminophen 1 - 2 each PO Q6H PRN #10 tablet 04/08/21 [Percocet 5-325 mg Tablet] Sucralfate [Carafate] 1 gm PO ACHS #60 tablet 04/08/21 - Allergies Allergies/Adverse Reactions: Allergies Allergy/AdvReac Type Severity Reaction Status Date / Time No Known Drug Allergies Allergy Verified 04/08/21 11:45 - Social History Does the pt smoke?: No Smoking Status: Never smoker Does the pt drink ETOH?: No Does the pt have substance abuse?: No - Immunizations Immunizations are current?: Yes PD ED PE NORMAL - Vitals Vital signs reviewed: Yes - General General: Alert and oriented X 3, No acute distress - HEENT HEENT: PERRL, EOMI - Neck Neck: Supple, no meningeal sign, No bony TTP - Cardiac Cardiac: RRR, No murmur - Respiratory Respiratory: No respiratory distress, Clear bilaterally - Abdomen Abdomen: Other (Epigastric and left upper quadrant tenderness without surgical signs, soft belly with normal bowel tones.) - Neuro Neuro: Alert and oriented X 3, Normal speech - Psych Psych: Normal mood, Normal affect Results - Vitals Vitals: Vital Signs - 24 hr 04/08/21 04/08/21 11:45 13:08 Temperature 36.9 C 36.7 C Heart Rate 88 90 Respiratory 18 16 Rate Blood Pressure 132/60 H 108/55 L O2 Saturation 100 100 Oxygen O2 Source Room air - Labs Labs: Laboratory Tests 04/08/21 04/08/21 04/08/21 11:54 11:54 11:54 WBC 7.1 RBC 4.48 Hgb 13.4 Hct 39.6 MCV 88.4 MCH 29.9 MCHC 33.8 RDW 11.7 L Plt Count 236 MPV 11.3 H Neut # (Auto) 3.7 Lymph # (Auto) 2.9 [place] # (Auto) 0.3 Eos # (Auto) 0.1 Baso # (Auto) 0.1 Absolute Nucleated RBC 0.00 Nucleated RBC % 0.0 Sodium 136 Potassium 3.4 L Chloride 100 L Carbon Dioxide 26 Anion Gap 10.0 BUN 9 Creatinine 0.9 Estimated GFR (MDRD) 76 L Glucose 98 Calcium 9.1 Total Bilirubin 1.0 AST 13 ALT 11 Alkaline Phosphatase 35 L Total Protein 7.6 Albumin 4.7 Globulin 2.9 Albumin/Globulin Ratio 1.6 Lipase 35 Urine Color YELLOW Urine Clarity HAZY Urine pH 6.5 Ur Specific [place] 1.020 Urine Protein NEGATIVE Urine Glucose (UA) NEGATIVE Urine Ketones NEGATIVE Urine Occult Blood TRACE-INTA Urine Nitrite NEGATIVE Urine Bilirubin NEGATIVE Urine Urobilinogen 0.2 (NORMAL) Ur Leukocyte Esterase TRACE H Urine RBC None Seen Urine WBC 0-3 Ur Squamous Epith Cells MOD Squamous H Urine Bacteria Few Ur Microscopic Review INDICATED Urine Culture Comments NOT INDICATED Urine HCG, Qual NEGATIVE Urine Opiates Screen Ur Oxycodone Screen Urine Methadone Screen Ur Propoxyphene Screen Ur Barbiturates Screen Ur Tricyclics Screen Ur Phencyclidine Scrn Ur Amphetamine Screen U Methamphetamines Scrn U Benzodiazepines Scrn Urine Cocaine Screen U Cannabinoids Screen 04/08/21 11:54 WBC RBC Hgb Hct MCV MCH MCHC RDW Plt Count MPV Neut # (Auto) Lymph # (Auto) [place] # (Auto) Eos # (Auto) Baso # (Auto) Absolute Nucleated RBC Nucleated RBC % Sodium Potassium Chloride Carbon Dioxide Anion Gap BUN Creatinine Estimated GFR (MDRD) Glucose Calcium Total Bilirubin AST ALT Alkaline Phosphatase Total Protein Albumin Globulin Albumin/Globulin Ratio Lipase Urine Color Urine Clarity Urine pH Ur Specific [place] Urine Protein Urine Glucose (UA) Urine Ketones Urine Occult Blood Urine Nitrite Urine Bilirubin Urine Urobilinogen Ur Leukocyte Esterase Urine RBC Urine WBC Ur Squamous Epith Cells Urine Bacteria Ur Microscopic Review Urine Culture Comments Urine HCG, Qual Urine Opiates Screen NEGATIVE Ur Oxycodone Screen NEGATIVE Urine Methadone Screen NEGATIVE Ur Propoxyphene Screen NEGATIVE Ur Barbiturates Screen NEGATIVE Ur Tricyclics Screen NEGATIVE Ur Phencyclidine Scrn NEGATIVE Ur Amphetamine Screen NEGATIVE U Methamphetamines Scrn NEGATIVE U Benzodiazepines Scrn NEGATIVE Urine Cocaine Screen NEGATIVE U Cannabinoids Screen NEGATIVE PD MEDICAL DECISION MAKING - ED course ED course: 25-year-old woman with now subacute pain most consistent with gastritis versus PUD status post negative ED work-ups in the past including labs, ultrasound, and CT. She has an appropriate referral pending to GI for I presume an upper endoscopy. She is treated for gastritis/PUD today. Labs are unremarkable. Departure - Departure Disposition: 01 Home, Self Care Clinical Impression: Gastritis Condition: Good Record reviewed to determine appropriate education?: Yes Instructions: ED PUD Vs Gastritis Prescriptions: Sucralfate [Carafate] 1 gm PO ACHS #60 tablet Omeprazole 40 mg PO DAILY #30 cap Oxycodone HCl/Acetaminophen [Percocet 5-325 mg Tablet] 1 - 2 each PO Q6H PRN #10 tablet PRN Reason: pain Ondansetron Odt [Zofran] 4 mg TL Q6H PRN #14 tablet PRN Reason: Nausea / Vomiting Comments: As discussed, I believe you probably have either gastritis or an ulcer. Your lab work is normal and the next step as you already know is to follow-up with gastroenterology for probably an upper endoscopy. I sent a prescription [facility] to [facility] in [place]. As discussed, you do need to take the Carafate about an hour separate from other medications to allow your other medications to work. Return if worse I am prescribing a short course of narcotic pain medication for you. These are potentially dangerous and addictive medications that should be used carefully. These medications may constipate you. Take an [id number] stool softener (docusate) twice daily with plenty of water while taking these medications. If you go 24 hours without a bowel movement, take [id number] miralax, per package instructions. Do not drink or drive while taking these medications. If you received narcotic or sedating medications while in the emergency department, do not drive for 24 hours. Store this medication in a safe, secure place and out of reach of children. It is a violation of federal law to give or sell this medication to another person or to use in a manner other than prescribed. The ED will not refill narcotic prescriptions, including prescriptions lost or stolen. To dispose of unwanted medications: 1. [facility] at [address] in [place] has a medication drop box. They accept prescription medications (in pill form) Thursday through Thursday 9:00 a.m. to 5:00 p.m. 2. [facility] accepts prescription medications (in pill form only) for disposal year round. Call for more information. 3. Contact the [facility] for the next [facility] sponsored prescription christina burris collection event. , [phone], or [phone]; Note that many narcotic pain relievers also contain Tylenol/acetaminophen. Please ensure that your total dose of acetaminophen from all sources does not exceed 3 g (3000 mg) per day. Forms: Activity restrictions Discharge Date/Time: 04/08/21 13:09
[2021-04-08 12:18] LABS: ALBUMIN 4.7 g/dL (3.2-5.5); ALBUMIN/GLOBULIN RATIO 1.6 (1.0-2.2); BACTERIA,URINE Few /HPF (None Seen); CALCIUM 9.1 mg/dL (8.5-10.3); CREATININE 0.9 mg/dL (0.4-1.0); POTASSIUM 3.4 mmol/L (3.5-5.0); RBC,URINE None Seen /HPF (0-5); SQUAMOUS EPITHELIAL CELL,UR MOD Squamous (<= Few); TOTAL PROTEIN 7.6 g/dL (6.7-8.2); WBC,URINE 0-3 /HPF (0-5)
[2021-04-08 12:21] LABS: BENZODIAZEPINES SCREEN, URINE NEGATIVE (NEGATIVE); COCAINE SCREEN URINE NEGATIVE (NEGATIVE); METHAMPHETAMINES SCREEN, URINE NEGATIVE (NEGATIVE); OPIATE SCREEN, URINE NEGATIVE (NEGATIVE); THC CANNABINOID SCREEN, URINE NEGATIVE (NEGATIVE)
[2021-04-08 12:22] LABS: AMPHETAMINE SCREEN,URINE NEGATIVE (NEGATIVE); BARBITURATE SCREEN,UR NEGATIVE (NEGATIVE); METHADONE SCREEN, URINE NEGATIVE (NEGATIVE); OXYCODONE SCREEN, URINE NEGATIVE (NEGATIVE); PROPOXYPHENE SCREEN, URINE NEGATIVE (NEGATIVE); TRICYCLIC ANTIDEPRESSANT,URINE NEGATIVE (NEGATIVE)
[2021-04-08 13:08] VITALS: BP 108/55
== END 2021-04-08 13:09 | disposition home or self-care (01) ==
LOC: ED 11:37
DX: K29.70 Gastritis, unspecified, without bleeding (principal)
CPT/HCPCS: 36415; 80053; 80306; 81001; 81025; 83690; 85025; 99284; A9270; 81003; 87086

== ENCOUNTER 2021-04-24 16:52 | Emergency (ER) | payer OTHER ==
[2021-04-24 17:01] VITALS: BP 117/46
[2021-04-24 17:23] LABS: RAPID STREP SCREEN Negative (Negative)
--- NOTE | 2021-04-24 17:32 | ED Physician Documentation ---
PD HPI HEENT - Stated complaint Stated Complaint: SORE THROAT - Chief complaint Chief Complaint: Heent - History obtained from History obtained from: Patient - Additional information Additional information: Patient comes to the emergency department chief complaint of sore throat for the last couple of days. States she has had a mild cough. No rhinorrhea or congestion. No fevers or chills. The patient has a history of recurrent strep throat and is seeing ENT for planned tonsillectomy. She thought she saw some calcifications in her tonsillar pits, and wanted to make sure whether she had strep throat again or not. No other complaints at this time. No sick contacts. Review of Systems Ten Systems: 10 systems reviewed and negative Constitutional: reports: Reviewed and negative Eyes: reports: Reviewed and negative Ears: reports: Reviewed and negative Nose: reports: Reviewed and negative Throat: reports: Sore throat Cardiac: reports: Reviewed and negative Respiratory: reports: Reviewed and negative GI: reports: Reviewed and negative : reports: Reviewed and negative Skin: reports: Reviewed and negative Musculoskeletal: reports: Reviewed and negative Neurologic: reports: Reviewed and negative Psychiatric: reports: Reviewed and negative Endocrine: reports: Reviewed and negative Immunocompromised: reports: Reviewed and negative PD PAST MEDICAL HISTORY - Past Medical History Past Medical History: No Cardiovascular: None Respiratory: None Neuro: Headaches Endocrine/Autoimmune: None GI: None GENERAL STUDIES PROGRAM CHAIR: Miscarriage(s) : None HEENT: None Psych: Depression, Anxiety Musculoskeletal: None Derm: None - Past Surgical History Past Surgical History: No - Present Medications Home Medications: Ambulatory Orders Medication Instructions Recorded Confirmed Venlafaxine HCl [Effexor Xr] 75 mg PO DAILY 12/05/20 04/24/21 Acetaminophen [Acetaminophen Extra 500 mg PO QID PRN #50 tablet 03/18/21 04/24/21 Strength] Ondansetron Odt [Zofran] 4 mg TL Q6H PRN #14 tablet 04/08/21 04/24/21 - Allergies Allergies/Adverse Reactions: Allergies Allergy/AdvReac Type Severity Reaction Status Date / Time No Known Drug Allergies Allergy Verified 04/24/21 16:56 - Social History Does the pt smoke?: No Smoking Status: Never smoker Does the pt drink ETOH?: No Does the pt have substance abuse?: No - Immunizations Immunizations are current?: Yes PD ED PE NORMAL - Vitals Vital signs reviewed: Yes - General General: Alert and oriented X 3, No acute distress, Well developed/nourished - HEENT HEENT: Atraumatic, PERRL, EOMI, Moist mucous membranes, Pharynx benign - Neck Neck: Supple, no meningeal sign, No adenopathy - Respiratory Respiratory: No respiratory distress - Derm Derm: Warm and dry - Extremities Extremities: No deformity - Neuro Neuro: Alert and oriented X 3 - Psych Psych: Normal mood, Normal affect Results - Vitals Vitals: Vital Signs - 24 hr 04/24/21 16:56 Temperature 36.6 C Heart Rate 97 Respiratory 16 Rate Blood Pressure 117/46 L O2 Saturation 97 Oxygen O2 Source Room air - Labs Labs: Laboratory Tests 04/24/21 17:05 Group A Strep Rapid Negative PD MEDICAL DECISION MAKING - ED course Complexity details: reviewed results, re-evaluated patient, considered differential, d/w patient ED course: Patient was evaluated with a strep test, which was negative. We have discussed symptomatic management at home and the need for continued follow-up with patient's ENT specialist. We discussed the usual indications for return. Departure - Departure Disposition: 01 Home, Self Care Clinical Impression: Pharyngitis Qualifiers: Pharyngitis/tonsillitis etiology: unspecified etiology Qualified Code(s): J02.9 - Acute pharyngitis, unspecified Condition: Stable Instructions: ED Pharyngitis Viral Comments: Your strep test is negative. You most likely have one of the many viral illnesses that are going around causing such symptoms right now. You may stay home from work if your workplace requires it. Antibiotics will not be helpful for this illness, but like all viral illnesses, this should pass on its own in the next several days to week. Forms: Activity restrictions Discharge Date/Time: 04/24/21 17:39
== END 2021-04-24 17:39 | disposition home or self-care (01) ==
LOC: ED 16:52
DX: J02.9 Acute pharyngitis, unspecified (principal)
CPT/HCPCS: 87070; 87430; 99282; 99283